=== PATIENT | female | born 1950 | race Caucasian/White ===

== ENCOUNTER 2020-09-10 09:44 | Outpatient (CLI) | payer BC, SELFPAY ==
--- NOTE | 2020-09-10 10:44 | ECG_ITS ---
Measurements Intervals [place] Rate: 73 P: 32 ID: 160 QRS: -11 QRSD: 97 T: 10 QT: 403 QTc: 444 Interpretive Statements SINUS RHYTHM POOR R WAVE PROGRESSION, ANTERIOR LEADS BORDERLINE T WAVE ABNORMALITY- ANT/INF LEADS BASELINE ARTIFACT- I, II, III, AVR, AVL, AVF BORDERLINE ECG Electronically Signed On 09-10-2020 11:12:17 CDT by Sachin Spicer D.O.
[2020-09-10 11:09] LABS: Basophils Absolute Auto 0.1 K/mm3 (0.0-0.1); Basophils Percent Auto 0.5 % (0.2-1.2); Eosinophils Absolute Auto 0.1 K/mm3 (0-0.3); Eosinophils Percent Auto 0.8 % (0-4.4); Hematocrit 46.7 % (37.0-47.0); Hemoglobin 15.3 g/dL (12.0-15.0); Immature Granulocyte Absolute 0.04 K/mm3 (0.00-0.031); Immature Granulocyte Percent A 0.4 % (0-0.5); Lymphocytes Percent Auto 22.6 % (18.3-44.2); Mean Corpuscular HGB Conc 32.8 g/dl (32-36); Mean Corpuscular Hemoglobin 30.3 pg (26-34); Mean Corpuscular Volume 92.5 fl (80-100); Mean Platelet Volume 11.2 fl (7.4-10.4); Monocytes Absolute Auto 0.6 K/mm3 (0.1-0.6); Monocytes Percent Auto 5.6 % (2.6-8.5); Neutrophils Absolute Auto 7.5 K/mm3 (1.3-6.7); Neutrophils Percent Auto 70.1 % (45.5-73.1); Platelet Count Result 266 k/mm3 (150-375); Red Blood Count 5.05 M/mm3 (4.2-5.4); Red Cell Distribution Width 13.2 % (11.5-14.5); White Blood Count 10.6 K/mm3 (4.5-10.0)
[2020-09-10 11:19] LABS: Urine Cotinine NEGATIVE
== END 2020-09-10 09:45 | disposition home or self-care (01) ==
LOC: ANHSURGERY 09:49
PROVIDERS: PCP Family Medicine; Visit Provider Orthopaedic Surgery
DX: M17.12 Unilateral primary osteoarthritis, left knee (principal); Z01.818 Encounter for other preprocedural examination; R94.31 Abnormal electrocardiogram [ECG] [EKG]
CPT/HCPCS: 80307; 85025; 87070; 87077; 87186; 93005

== ENCOUNTER 2020-11-06 09:45 | Outpatient (CLI) | payer BC, SELFPAY ==
[2020-11-06 10:52] LABS: Basophils Absolute Auto 0.1 K/mm3 (0.0-0.1); Basophils Percent Auto 0.9 % (0.2-1.2); Eosinophils Absolute Auto 0.1 K/mm3 (0-0.3); Eosinophils Percent Auto 1.3 % (0-4.4); Hematocrit 45.2 % (37.0-47.0); Hemoglobin 14.7 g/dL (12.0-15.0); Immature Granulocyte Absolute 0.02 K/mm3 (0.00-0.031); Immature Granulocyte Percent A 0.3 % (0-0.5); Lymphocytes Absolute Auto 2.13 K/mm3 (0.9-3.2); Lymphocytes Percent Auto 30.8 % (18.3-44.2); Mean Corpuscular HGB Conc 32.5 g/dl (32-36); Mean Corpuscular Hemoglobin 30.9 pg (26-34); Mean Corpuscular Volume 95.2 fl (80-100); Mean Platelet Volume 11.3 fl (7.4-10.4); Monocytes Absolute Auto 0.5 K/mm3 (0.1-0.6); Monocytes Percent Auto 6.9 % (2.6-8.5); Neutrophils Absolute Auto 4.1 K/mm3 (1.3-6.7); Neutrophils Percent Auto 59.8 % (45.5-73.1); Platelet Count Result 238 k/mm3 (150-375); Red Blood Count 4.75 M/mm3 (4.2-5.4); Red Cell Distribution Width 13.2 % (11.5-14.5); White Blood Count 6.9 K/mm3 (4.5-10.0)
[2020-11-06 11:02] LABS: Albumin Level 4.6 g/dL (3.5-5.1); Anion Gap 8 mmol/L (8-16); Blood Urea Nitrogen 17 mg/dL (7-17); Calcium 9.9 mg/dL (8.4-10.2); Carbon Dioxide 30 mmol/L (22-30); Chloride 102 mmol/L (98-107); Estimated Glomerular Filt Rate > 60; Glucose 150 mg/dL (65-110); Potassium 4.1 mmol/L (3.4-5.0); Sodium 140 mmol/L (137-145)
[2020-11-06 11:07] LABS: Urine Cotinine NEGATIVE
== END 2020-11-06 09:46 | disposition home or self-care (01) ==
LOC: ANHSURGERY 09:50
PROVIDERS: PCP Family Medicine; Visit Provider Orthopaedic Surgery
DX: M17.10 Unilateral primary osteoarthritis, unspecified knee (principal); Z01.818 Encounter for other preprocedural examination
CPT/HCPCS: 80048; 80307; 82040; 85025; 86850; 86900; 86901; 87070

== ENCOUNTER 2020-11-14 01:52 | Day surgery (SDC) | payer BC, SELFPAY ==
[2020-09-10 09:55] VITALS: BMI 36.8
[2020-09-10 10:31] VITALS: BP 149/78; PULSE 78; RESP 16; TEMP 36.5; O2SAT 97
--- NOTE | 2020-09-25 13:06 | WPDANESEPPF ---
Anes - Initial Pre Proc Eval Procedure: Operation Date: 09/26/20 12:00 Proposed Procedures p Left Total Knee Arthroplasty - Braulio Morse MD Date/Time: 09/25/20 13:06 Surgeon: Braulio Morse MD Pre Op Diagnosis: OA left knee Patient Data Age: 70 Gender: F Height: 1.73 m Weight: 109.7 kg Last Vital Signs Temp 36.5 C 09/10/20 10:31 Pulse 78 09/10/20 10:31 Resp 16 09/10/20 10:31 BP 149/78 H 09/10/20 10:31 Pulse Ox 97 09/10/20 10:31 Allergies Allergy/AdvReac Type Severity Reaction Status Date / Time lisinopril Allergy Mild throat Verified 09/10/20 09:56 swelling Home Medications Medication Instructions Recorded Confirmed Type carvedilol 12.5 mg tablet 12.5 mg PO Q12H #180 tablet 01/23/20 09/10/20 Rx cetirizine 10 mg tablet 10 mg PO DAILY PRN #90 tablet 01/23/20 09/10/20 Rx hydrochlorothiazide 12.5 mg capsule 12.5 mg PO DAILY #90 cap 07/16/20 09/10/20 Rx losartan 50 mg tablet 50 mg PO BID #180 tablet 08/20/20 09/10/20 Rx amlodipine 2.5 mg PO QPM 09/10/20 09/10/20 History metformin 500 mg PO BID 09/10/20 09/10/20 History sitagliptin [Januvia] 100 mg PO QPM 09/10/20 09/10/20 History PMFSH Past Medical History Medical History Arthritis of knee Benign labile hypertension Borderline diabetes mellitus Obesity (BMI 30-39.9) Type 2 diabetes mellitus without complications Family History Family History Father Hypertension Family history of elevated blood lipids Family history of diabetes mellitus in first degree relative Mother Family history of malignant neoplasm of uterus Social History Social History (Updated 09/04/20 @ 10:34 by Lexi Rojas) Social History: Years smoked: 20 Smoking status: Former smoker Tobacco type: cigarettes Second hand tobacco smoke exposure: No Smoking end date: 02/09/14 Additional smoking assessment comments: DENIES ANY FORM OF TOBACCO USE Alcohol intake: current Alcohol use details: 1 OR 2 DRINKS PER MONTH Substance use: never Substance use type: does not use Gender identity (if verbalized by the patient): Female Spiritual care concerns: No Anes - Eval Final PreProcedure Day of Procedure 09/25/20 13:06 Patient weight: obese Heart: regular rate and rhythm Lungs: clear to auscultation and normal air movement Airway: Mallampati scale class II Neurological: alert and oriented Last oral intake: >/= 8 hours ASA classification: III Emergent: no Anesthetic plan: proceed Anesthesia type and monitoring: general LMA and ETT Informed Consent: The patient's anesthetic plan and its attendant risks and benefits were discussed with the patient/family/POA. Questions were solicited and answers provided to the satisfaction of the patient/family/POA.
[2020-11-06 10:01] VITALS: BP 168/84; PULSE 80; RESP 20; TEMP 36.3; O2SAT 94; BMI 37.4
--- NOTE | 2020-11-12 12:13 | PM.IMHP ---
H&P: HPI History of Present Illness Date/Time: 11/12/20 12:[age] year old female patient of Dr Burns who presents today for left total knee arthroplasty. She has been having pain in this left knee for several years. She has had 1 cortisone injection in the past which gave her minimal relief. She was prescription strength anti-inflammatories this last year without relief. She has severe medial compartment moderate patellofemoral arthritis in the left knee. She feels this point she is ready to proceed with surgery on the knee rather continue nonsurgical treatment. She is having pain on daily basis. It is keeping her from doing her normal daily activities. <DEN Giron - Last Filed: 11/12/20 12:25> Chief Complaint: left knee DJD <DEN Giron - Last Filed: 11/12/20 12:25> Review of Systems Review of Systems: All systems reviewed & are unremarkable except as noted in HPI and below <DEN Giron - Last Filed: 11/12/20 12:25> [facility] Past Medical History Medical History: Medical History Arthritis of knee Benign labile hypertension Borderline diabetes mellitus Obesity (BMI 30-39.9) Type 2 diabetes mellitus without complications <DEN Giron - Last Filed: 11/12/20 12:25> Family History Family History: Family History Father Hypertension Family history of elevated blood lipids Family history of diabetes mellitus in first degree relative Mother Family history of malignant neoplasm of uterus <DEN Giron - Last Filed: 11/12/20 12:25> Social History Social History: Social History Social History: Years smoked: 20 Smoking status: Former smoker Tobacco type: cigarettes Second hand tobacco smoke exposure: No Smoking end date: 02/09/14 Additional smoking assessment comments: DENIES ANY FORM OF TOBACCO USE Alcohol intake: current Alcohol use details: 1-2 DRINKS/MONTH Substance use: never Substance use type: does not use Living arrangements: with family Gender identity (if verbalized by the patient): Female Sexual Orientation (if Verbalized by the Patient): Straight or Heterosexual Spiritual care concerns: No <DEN Giron - Last Filed: 11/12/20 12:25> Meds Home Medications and Allergies Home medications: Home Medications Medication Instructions Recorded Confirmed Type carvedilol 12.5 mg tablet 12.5 mg PO Q12H #180 tablet 01/23/20 11/14/20 Rx cetirizine 10 mg tablet 10 mg PO DAILY PRN #90 tablet 01/23/20 11/14/20 Rx hydrochlorothiazide 12.5 mg capsule 12.5 mg PO DAILY #90 cap 07/16/20 11/14/20 Rx losartan 50 mg tablet 50 mg PO BID #180 tablet 08/20/20 11/14/20 Rx metformin 500 mg PO BID 09/10/20 11/14/20 History amlodipine 2.5 mg HS 11/06/20 11/14/20 History sitagliptin [Januvia] 100 mg HS 11/06/20 11/14/20 History <DEN Giron - Last Filed: 11/12/20 12:25> Allergies/Adverse reactions: Allergies Allergy/AdvReac Type Severity Reaction Status Date / Time lisinopril Allergy Mild throat Verified 11/14/20 06:38 swelling <DEN Giron - Last Filed: 11/12/20 12:25> Exam Narrative: 70-year-old female alert pleasant. . She is 5 ft 7 244 lb. His left knee range of motion is from 10-125 degrees. No effusion. Normal stability. Skin is all normal. 2+ posterior tibial artery pulse and absent dorsalis pedis pulse. Normal sensation left lower extremity. Hip range of motion is full without discomfort. Negative Stinchfield maneuver. Normal quad strength. Moderate medial joint line tenderness and significant patellofemoral crepitus with range of motion. She has moderate tenderness to patellofemoral grind. <DEN Giron - Last Filed: 11/12/20 12:25> Resp: Auscultation: clear to auscultation bilaterally <Bobby Cifuentes
--- NOTE | 2020-11-13 13:54 | WPDANESEPPF ---
Anes - Initial Pre Proc Eval Procedure: Operation Date: 11/14/20 07:30 Proposed Procedures p Left Total Knee Arthroplasty - Braulio Morse MD Date/Time: 11/13/20 13:54 Surgeon: Braulio Morse MD Pre Op Diagnosis: OA left knee Patient Data Age: 70 Gender: F Height: 1.73 m Weight: 111.6 kg Last Vital Signs Temp 97.3 F L 11/06/20 10:01 Pulse 80 11/06/20 10:01 Resp 20 11/06/20 10:01 BP 168/84 H 11/06/20 10:01 Pulse Ox 94 11/06/20 10:01 Allergies Allergy/AdvReac Type Severity Reaction Status Date / Time lisinopril Allergy Mild throat Verified 11/14/20 06:38 swelling Home Medications Medication Instructions Recorded Confirmed Type carvedilol 12.5 mg tablet 12.5 mg PO Q12H #180 tablet 01/23/20 11/14/20 Rx cetirizine 10 mg tablet 10 mg PO DAILY PRN #90 tablet 01/23/20 11/14/20 Rx hydrochlorothiazide 12.5 mg capsule 12.5 mg PO DAILY #90 cap 07/16/20 11/14/20 Rx losartan 50 mg tablet 50 mg PO BID #180 tablet 08/20/20 11/14/20 Rx metformin 500 mg PO BID 09/10/20 11/14/20 History amlodipine 2.5 mg HS 11/06/20 11/14/20 History sitagliptin [Januvia] 100 mg HS 11/06/20 11/14/20 History Patient hx anesthesia problems: none Family hx anesthesia problems: none Results Review: All pre-operative results and documents have been reviewed as part of the pre-operative evaluation. [facility] Past Medical History Medical History Arthritis of knee Benign labile hypertension Borderline diabetes mellitus Obesity (BMI 30-39.9) Type 2 diabetes mellitus without complications Family History Family History Father Hypertension Family history of elevated blood lipids Family history of diabetes mellitus in first degree relative Mother Family history of malignant neoplasm of uterus Social History Social History Social History: Years smoked: 20 Smoking status: Former smoker Tobacco type: cigarettes Second hand tobacco smoke exposure: No Smoking end date: 02/09/14 Additional smoking assessment comments: DENIES ANY FORM OF TOBACCO USE Alcohol intake: current Alcohol use details: 1-2 DRINKS/MONTH Substance use: never Substance use type: does not use Living arrangements: with family Gender identity (if verbalized by the patient): Female Sexual Orientation (if Verbalized by the Patient): Straight or Heterosexual Spiritual care concerns: No Anes - Eval Final PreProcedure Day of Procedure 11/13/20 13:54 Patient weight: obese Heart: regular rate and rhythm Lungs: clear to auscultation Airway: Mallampati scale class II Neurological: alert and oriented Last oral intake: >/= 8 hours ASA classification: III Emergent: no Anesthetic plan: proceed Anesthesia type and monitoring: general LMA and standard monitoring Results Review: All pre-operative results and documents have been reviewed as part of the pre-operative evaluation. Informed Consent: The patient's anesthetic plan and its attendant risks and benefits were discussed with the patient/family/POA. Questions were solicited and answers provided to the satisfaction of the patient/family/POA.
[2020-11-14] VITALS (16 sets, daily range): BP systolic 93–147; BP diastolic 53–78; PULSE 73–97; RESP 12–20; TEMP 36–37.1; O2SAT 92–100
--- NOTE | ~2020-11-14 | XR_ITS ---
EXAMINATION: XR knee LT 2V DATE: 11/14/2020 11:50 INDICATION: Total left knee arthroplasty. Postop. TECHNIQUE: 2 views of left knee were obtained. COMPARISON: Left knee radiograph 09/25/2016 FINDINGS: There is a total left knee arthroplasty with patellar resurfacing in near-anatomic alignmen t. No fracture. There is gas in the soft tissues, consistent with recent surgery. There is a small kn ee joint effusion. IMPRESSION: 1. Total left knee arthroplasty in near-anatomic alignment. Reviewed, dictated and finalized at location A.
[2020-11-14] MEDS: ACETAMINOPHEN 500 MG TABLET 1000 MG PO ×3 (06:20→20:22)
[2020-11-14] MEDS: LACTATED RINGERS 1,000 ML 30 ML IV CONT ×2 (06:25→11:42)
[2020-11-14] MEDS: TRANEXAMIC ACID 1,000MG/ISO100 1,000 MG/100 ML BAG 200 MG IVPB (06:31)
[2020-11-14 06:35] LABS: Glucose Point of Care 156 mg/dl (65-105)
--- NOTE | 2020-11-14 07:07 | WPDHPUPDATE1 ---
History and Physical Update Update Date/Time: 11/14/20 07:07 History and Physical has been reviewed, including an updated exam of the patient. There are NO changes in the patient's condition. Risks, benefits, and alternatives have been discussed and questions answered. Patient agrees to proceed with procedure.
[2020-11-14] MEDS: ceFAZolin 2 GM/D5W 50 ML 2 GM/50 ML BAG IVPB (07:30)
[2020-11-14] MEDS: ceFAZolin SODIUM 1 GM VIAL 3 GM IRRIGATION (08:00)
[2020-11-14] MEDS: GENTAMICIN BONE CEMENT REFOBACIN 1 EACH TOPICAL (09:52)
[2020-11-14] MEDS: ceFAZolin SODIUM 1 GM VIAL 2 GM IV PUSH (10:47)
[2020-11-14] MEDS: TRANEXAMIC ACID 1,000 MG/10 ML AMPUL 1000 MG IV PUSH (10:52)
--- NOTE | 2020-11-14 11:53 | W.PM.PROC2 ---
Procedure Note - Detailed Date of Procedure 11/14/20 Pre-op Diagnosis OA left knee Post-op Diagnosis same Procedure Performed Left total knee arthroplasty Surgeon Braulio Morse MD Link Trainer Operator Oscar Anesthesia general Findings Same Description of Procedure Patient was brought to the operating room and general anesthesia was administered. The left knee was prepped draped usual fashion. She received 2 g Ancef weight based vancomycin and 1 g of tranexamic acid preoperatively. She did have about a 7 degree flexion contracture under anesthesia. Limb was exsanguinated tourniquet elevated to 300 mmHg. An 8 in longitudinal midline incision was used. Standard parapatellar arthrotomy was utilized. Infrapatellar and suprapatellar fat pads were excised a quadriceps synovectomy carried out. The patella had significant degenerative changes and measured 23 mm in thickness. It was cut to 15 mm and a protector cap applied. Bone quality was very good. A guide ailyn was inserted on the femoral canal after aspiration of canal contents using the 5 degree valgus cutting bushing 9 mm of bone removed off the distal femur. This removed the same amount medially and laterally. Next the 2 plateau was cut removing 2 mm of bone off the low point of medial tibial plateau she moved about 6 from lateral side. Meniscal remnants were excised PCL recessed. Margins of the medial tibial osteophyte were removed. Flexion gap was 8 mm all medially and 10 mm laterally. We applied the sizing guide the distal femur set at 3? of external rotation which matched Whitesides signs lined nicely. This 65 was going to notch we cut to a 67.5 which was going to be a little bit too wide. We trialed with the 10 CR insert which was easy to insert in flexion but no play laterally about a mm half plane medially. The tibial alignment was confirmed to be perpendicular to the axis of the tibia and the tibia was sized to a 71 which fit line to line posterolateral and anteromedial at the proper rotation and this was punched. We trialed the 10 and that he lacked about fiber 6? of extension with no medial or lateral play. At 90? of flexion again there was some play medially but it was too tight laterally. An additional 2 mm of bone removed the distal femur chamfer cuts revisited and on read trialing the knee came out to full extension with 1 mm lateral plate and a mm medial play in full extension with a negative bounce. At 90? though was still too tight laterally with no anterior posterior drawer play whatsoever and I felt this was a little bit too tight. We needed to downsize the femoral component since it was a little bit too wide. We removed the lateral fixation pin from the 06/09 cutting block the size 65 and internally rotated it such that we would remove about a mm and half of bone from the posterior aspect the lateral femoral condyle diminishing the tendency for this to notch and this was pinned in place in this position and AP and chamfer cuts revisited in the 65 femur fit nicely line to line medial to lateral and no notching anteriorly. We trialed in this time with a size 10 there is a mm of lateral opening with varus stress at 90? and a mm of medial opening with valgus stress at 90? to had very appropriate flexion stability gravity flexion to 130 with patellar tracking somewhat poor. The tourniquet had been released at 96 minutes in we punched the heriberto sized the patella to a 31 x 8 mm and this was punched and lug holes were drilled in the femur. Lateral retinacular release was necessary for the patella to track centrally and this was done to a level just distal to the superior pole of patella avoiding the superior lateral geniculate vessels and carried down distally to the tibial plateau. This allowed central patellar tracking. Limb was exsanguinated again and tourniquet elevated 300 mmHg. Step drill was used to make multiple perforations the tibial plateau and distal femur. Bone quality was very go
[2020-11-14 12:08] LABS: Glucose Point of Care 189 mg/dl (65-105)
--- NOTE | 2020-11-14 14:43 | ADMGEN ---
This patient, Jud Dalal, was admitted to 2 Medical Room 241-01. Patient/family oriented to hospital policies and general routines including ID bracelet, bed and alarms, visiting hours, pain management, procedures, bathroom and other care routines, personal items, smoking policy, room service/diet, and visiting hours. Information on how to activate the Rapid Response Team has been discussed. Patient/Family are encouraged to report perceived risks to care and to ask questions if they do not understand what they are told or what they should do.
[2020-11-14] MEDS: SENNA/DOCUSATE SODIUM TABLET 2 TAB PO (16:43)
[2020-11-14] MEDS: oxyCODONE HCL (*CRX) 5 MG TAB IR PO ×3 (16:43→23:45)
[2020-11-14] MEDS: metFORMIN HCL XR 500 MG TAB.SR.24H PO (16:44)
[2020-11-14] MEDS: DOCUSATE SODIUM 100 MG CAPSULE PO (16:44)
--- NOTE | 2020-11-14 17:30 | WPDCN ---
Assessment and Plan Assessment and plan (1) Arthritis of left knee: Code(s): M17.12 - Unilateral primary osteoarthritis, left knee Status: Acute Assessment and Plan: Postoperative day 0, status post right total knee arthroplasty. Wound care and pain control will be deferred to Dr. Morse as well as DVT prophylaxis. PT/OT consulted. Initiate fall precautions. Check baseline labs in a.m. (2) Hypertension: Code(s): I10 - Essential (primary) hypertension Status: Acute Assessment and Plan: Blood pressures were reviewed and they have been stable postoperatively though they were a bit soft in PACU earlier today. Will resume antihypertensives with parameters and monitor blood pressures daily. (3) Type 2 diabetes mellitus without complications: Code(s): E11.9 - Type 2 diabetes mellitus without complications Status: Acute Assessment and Plan: Resume metformin and sitagliptin. Initiate sliding scale insulin, Accu-Cheks, and hypoglycemic protocol. Additional Plan Thank you for allowing us to participate in this patient's care. Please do not hesitate to contact us with any questions. Supervising physician for this medical consultation is Dr. Ran Moore. HPI Data of Consult Date/Time: 11/14/20 17:30 Requesting Physician: Braulio Morse MD Primary Care Provider: Katy Chavez MD Consult Narrative Narrative: This is a 70-year-old female with hypertension, type 2 diabetes mellitus, and degenerative joint disease whom the hospitalist service has been consulted for management of her medical conditions postoperatively. She has had pain in her left knee for several years and unfortunately conservative outpatient therapies have not provided her with long-lasting benefits and as such she elected for replacement today. Her surgery was performed under general anesthesia with no immediate complications documented an estimated blood loss of 250 mL. At the time my evaluation she is sitting in a chair at the side of the bed and is just finished eating dinner. She has been up with physical therapy and to the bathroom with a walker and is doing quite well. She is only having mild discomfort in the posterior knee. Postoperatively she was a bit ?woozy? but that has passed and she is feeling pretty good. She denies postoperative fever, chills, sweats, chest pain, shortness of breath, nausea, and vomiting. She also denies paresthesias, skin color, and temperature changes distal to the surgical site. Review of Systems Review of Systems: Twelve systems were reviewed with pertinent positives and negatives as per HPI. No recent cold or flu symptoms. She denies sick contacts. No known exposure to those positive for COVID 19. Her diabetes is well controlled in fact she has dropped her hemoglobin A1c by nearly 5% in the last 5 months being more mindful of her diet and with weight loss, in addition to medication. No personal or family history venous thromboembolism. Except as documented, all other systems were reviewed and are negative. [facility] Past Medical History Medical History (Updated 11/14/20 @ 15:24 by Jenny Hartmann PA-C) Arthritis of left knee Hypertension Type 2 diabetes mellitus without complications Hemoglobin A1c was 5.9% on 08/31/2020. Surgical History Surgical History (Updated 11/14/20 @ 15:24 by Jenny Hartmann PA-C) History of arthroplasty of left knee History of hysterectomy (11/14/20) Family History Family History Father Hypertension Family history of elevated blood lipids Family history of diabetes mellitus in first degree relative Mother Family history of malignant neoplasm of uterus Social History Social History (Updated 11/14/20 @ 15:26 by Jenny Hartmann PA-C) Social History: . [place]
[2020-11-14] MEDS: carvediloL 12.5 MG TABLET PO (20:23)
[2020-11-14] MEDS: amLODIPine BESYLATE 2.5 MG TABLET PO (20:24)
[2020-11-14] MEDS: APIXABAN 2.5 MG TABLET PO (20:25)
[2020-11-14 22:16] LABS: Glucose Point of Care 210 mg/dl (65-105)
[2020-11-15] MEDS: ACETAMINOPHEN 500 MG TABLET 1000 MG PO ×3 (02:43→13:23)
[2020-11-15 03:15] VITALS: BP 128/64; PULSE 87; RESP 18; TEMP 36.4; O2SAT 97
[2020-11-15] MEDS: oxyCODONE HCL (*CRX) 5 MG TAB IR PO ×5 (04:50→13:24)
[2020-11-15] MEDS: CEPHALEXIN 250 MG CAPSULE PO ×2 (04:51→11:54)
[2020-11-15 05:38] LABS: Basophils Percent Auto 0.3 % (0.2-1.2); Eosinophils Percent Auto 0.2 % (0-4.4); Hematocrit 36.9 % (37.0-47.0); Hemoglobin 12.1 g/dL (12.0-15.0); Immature Granulocyte Absolute 0.06 K/mm3 (0.00-0.031); Immature Granulocyte Percent A 0.5 % (0-0.5); Lymphocytes Absolute Auto 1.84 K/mm3 (0.9-3.2); Lymphocytes Percent Auto 14.2 % (18.3-44.2); Mean Corpuscular HGB Conc 32.8 g/dl (32-36); Mean Corpuscular Hemoglobin 30.4 pg (26-34); Mean Corpuscular Volume 92.7 fl (80-100); Mean Platelet Volume 11.5 fl (7.4-10.4); Monocytes Absolute Auto 1.1 K/mm3 (0.1-0.6); Monocytes Percent Auto 8.3 % (2.6-8.5); Neutrophils Percent Auto 76.5 % (45.5-73.1); Platelet Count Result 225 k/mm3 (150-375); Red Blood Count 3.98 M/mm3 (4.2-5.4); Red Cell Distribution Width 13.2 % (11.5-14.5)
[2020-11-15 05:52] LABS: Anion Gap 10 mmol/L (8-16); Blood Urea Nitrogen 12 mg/dL (7-17); Calcium 9.1 mg/dL (8.4-10.2); Carbon Dioxide 27 mmol/L (22-30); Chloride 100 mmol/L (98-107); Estimated CRCL calculation 84 ml/min; Estimated Glomerular Filt Rate > 60; Glucose 147 mg/dL (65-110); Magnesium 1.8 mg/dL (1.6-2.3); Potassium 3.9 mmol/L (3.4-5.0); Sodium 137 mmol/L (137-145)
[2020-11-15 07:15] VITALS: BP 128/69; PULSE 85; RESP 18; TEMP 36.8; O2SAT 97
--- NOTE | 2020-11-15 07:16 | PM.PNORT ---
Progress Note: A&P Additional Plan Postop day 1 patient is doing very well. She is afebrile vital signs are stable. Neurovascular intact. Dressing is dry. She was up to the restroom overnight and tolerating this. She is having a little bit increased pain with weight-bearing, I discussed with her about making sure that she is taking 2 pain pills at a time to help control this. Labs were noted from this morning she is stable. Will plan to have patient work with physical therapy for both sessions today and then plan to send home later this afternoon patient continues to do well. Subjective Subjective Date/Time Seen: 11/15/20 07:16 Objective Data Vital Signs Vital Signs: Vital Signs - 24 hr 11/14/20 11:42 11/14/20 11:55 11/14/20 12:10 Temperature 36.8 C Pulse Rate 81 83 86 Respiratory Rate 14 12 14 Blood Pressure 93/53 L 94/55 L 126/72 Pulse Oximetry 93 95 96 11/14/20 12:25 11/14/20 12:40 11/14/20 12:55 Temperature Pulse Rate 88 77 80 Respiratory Rate 14 14 12 Blood Pressure 122/70 125/68 127/71 Pulse Oximetry 93 94 97 11/14/20 13:09 11/14/20 13:30 11/14/20 13:45 Temperature 36.3 C L 36.1 C L 36.0 C L Pulse Rate 80 76 73 Respiratory Rate 12 14 14 Blood Pressure 131/68 132/66 131/69 Pulse Oximetry 97 98 98 11/14/20 14:15 11/14/20 15:08 11/14/20 15:15 Temperature 36.0 C L 36.1 C L Pulse Rate 79 87 Respiratory Rate 14 14 Blood Pressure 133/68 130/68 Pulse Oximetry 99 92 100 11/14/20 19:15 11/14/20 20:23 11/14/20 23:15 Temperature 36.1 C L 37.1 C Pulse Rate 97 85 88 Respiratory Rate 20 20 Blood Pressure 137/70 136/66 Pulse Oximetry 99 98 11/15/20 03:15 Temperature 36.4 C Pulse Rate 87 Respiratory Rate 18 Blood Pressure 128/64 Pulse Oximetry 97 Intake/Output Intake/Output: Intake & Output 11/12/20 11/13/20 11/14/20 11/15/20 23:59 23:59 23:59 23:59 Intake Total 690 900 Output Total 1400 Balance 690 -500 Meds/Results Medications: Active Medications Generic Name Dose Route Start Last Admin Trade Name Christiano PRN Reason Stop Dose Admin Acetaminophen 1,000 mg 11/14/20 14:00 11/15/20 02:43 Acetaminophen 500 Mg Tablet PO 1,000 mg Q6H EDGAR Administration Amlodipine Besylate 2.5 mg 11/14/20 21:00 11/14/20 20:24 Amlodipine Besylate 2.5 Mg Tablet PO 2.5 mg HS EDGAR Administration Apixaban 2.5 mg 11/14/20 21:00 11/14/20 20:25 Apixaban 2.5 Mg Tablet PO 2.5 mg Q12HR EDGAR Administration Carvedilol 12.5 mg 11/14/20 21:00 11/14/20 20:23 Carvedilol 12.5 Mg Tablet PO 12.5 mg Q12HR EDGAR Administration Celecoxib 200 mg 11/15/20 08:00 Celecoxib 200 Mg Capsule PO DAILY@0800 EDGAR Cephalexin HCl 250 mg 11/15/20 06:00 11/15/20 04:51 Cephalexin 250 Mg Capsule PO 11/29/20 05:59 250 mg Q6HR EDGAR Administration Dextrose 12.5 gm 11/14/20 13:10 Dextrose 50% 25 Gm/50 Ml Syringe IV PUSH PRN PRN Hypoglycemia Protocol Docusate Sodium 100 mg 11/14/20 17:00 11/14/20 16:44 Docusate Sodium 100 Mg Capsule PO 100 mg BID EDGAR Administration Glucagon 1 mg 11/14/20 13:10 Glucagon For Inj 1 Mg Vial IM PRN PRN Hypoglycemia Protocol Glucose 15 gm 11/14/20 13:10 Glucose Oral Gel 15 Gm Of Glucse In 37.5 Gm Tube PO PRN PRN Hypoglycemia Protocol Dextrose 1,000 mls @ 100 mls/hr 11/14/20 13:10 Dextrose 5% 1,000 Ml IVPB PRN PRN Hypoglycemia Protocol Vancomycin HCl 1,000 mg in 250 mls @ 250 mls/hr 11/14/20 19:00 11/15/20 06:09 Vancomycin 1,000 Mg/D5w 250 Ml IVPB 11/15/20 07:59 250 mls/hr Q12H EDGAR Administration Cefazolin Sodium 1 gm in 50 mls @ 100 mls/hr 11/14/20 15:30 11/15/20 00:16 Ancef 1 Gm/D5w 50 Ml Pm IVPB 11/15/20 07:59 Infused Q8H [facility] Infusion Insulin Aspart 2 - 5 units 11/14/20 17:00 11/14/20 16:44 Insulin Aspart (*Bkc) 100 Units/Ml SUB-Q Not Given TIDWM [facility] Protocol Loratadine 10 mg 11/14/20
--- NOTE | 2020-11-15 07:41 | PM.DS ---
DS: Admitting Diagnosis Discharge Date 11-15-2020 Admitting Diagnosis left knee DJD DS: Summary Hospital Course Hospital Course: stable Time Spent with Patient Time attestation: Total time spent providing and/or coordinating discharge services: 70-year-old female underwent left total knee arthroplasty on 11/14. Under procedure and complications. Postoperative she has been afebrile vital signs was stable. Neurovascular is intact. She has a Mepilex dressing over the knee. She is weight-bearing as tolerated. She is on Eliquis for 2 weeks followed by baby aspirin for DVT prophylaxis. Pain control, where utilizing oxycodone 5 mg, Celebrex 200 mg once a day as well as scheduled Tylenol. Patient will be discharged to home on 11/15. She has outpatient therapy starting tomorrow. Patient was advised questions or concerns call the office otherwise I will see her appointment dates. DS: Data Data Completed and Pending Labs on day of discharge: Labs from last 24 hours 11/15/20 11/15/20 11/14/20 04:54 04:54 22:11 WBC 13.0 H RBC 3.98 L Hgb 12.1 Hct 36.9 L MCV 92.7 MCH 30.4 MCHC 32.8 RDW 13.2 Plt Count 225 MPV 11.5 H Immature Gran % (Auto) 0.5 Neut % (Auto) 76.5 H Lymph % (Auto) 14.2 L [place] % (Auto) 8.3 Eos % (Auto) 0.2 Baso % (Auto) 0.3 Lymph # (Auto) 1.84 [place] # (Auto) 1.1 H Eos # (Auto) 0.0 Baso # (Auto) 0.0 Abs Immat Gran (auto) 0.06 H Absolute Neuts (auto) 10.0 H Absolute Nucleated RBC 0.0 Nucleated RBC % 0.0 Sodium 137 Potassium 3.9 Chloride 100 Carbon Dioxide 27 Anion Gap 10 BUN 12 D Creatinine 0.70 Estim Creat Clear Calc 84 Estimated GFR > 60 Glucose 147 H POC Capillary Glucose 210 H Calcium 9.1 Magnesium 1.8 11/14/20 11:49 WBC RBC Hgb Hct MCV MCH MCHC RDW Plt Count MPV Immature Gran % (Auto) Neut % (Auto) Lymph % (Auto) [place] % (Auto) Eos % (Auto) Baso % (Auto) Lymph # (Auto) [place] # (Auto) Eos # (Auto) Baso # (Auto) Abs Immat Gran (auto) Absolute Neuts (auto) Absolute Nucleated RBC Nucleated RBC % Sodium Potassium Chloride Carbon Dioxide Anion Gap BUN Creatinine Estim Creat Clear Calc Estimated GFR Glucose POC Capillary Glucose 189 H Calcium Magnesium Discharge Plan Discharge Patient Disposition: Home, Self-Care Discharge Instructions: BRAULIO MORSE M.D [facility], [place] [id number] [place] [address] POST-OPERATIVE DISCHARGE INSTRUCTIONS TOTAL KNEE ARTHROPLASTY 1. When resting, lie on back with leg elevated above hear to minimize swelling. Significant swelling could indicate a blood clot and if this occurs call the office (or go to the ER) to have a venous ultrasound. 2. Do exercise 5 times a day. 3. Do not sit with leg down except for meals. 4. Wound Care: Nursing will give additional dressings at discharge. Patient to change dressing at home 1 week from surgery, then maintain until seen in office. 5. May shower with dressing in place. 6. Follow weight bearing status instructions. 7. Limit sitting in chair with leg hanging down to 30 minutes at a time, 4 times a day. Patient Instructions: Apixaban (By mouth), Pain Management (DC), Precautions after Total Joint Replacement Surgery (DC), Knee Replacement (DC) Stand Alone Forms: General Discharge Instructions Follow-up/Referrals: Braulio Morse MD [Physician] - Keep Reg. Scheduled Appt. Discharge Medications: New acetaminophen 500 mg Tablet 1,000 mg PO Q6H Qty: 90 RF: 0 Eliquis 2.5 mg Tablet 2.5 mg PO Q12HR Qty: 27 RF: 0 celecoxib [Celebrex] 200 mg Capsule 200 mg PO DAILY@0800 Qty: 30 RF: 0 polyethylene glycol 3350 [Miralax] 17 gram Powder In Packet 17 g PO QAM Qty: 30 RF: 0 cephalexin 250 mg Capsule 500 mg PO Q6HR Qty: 48 RF: 0 sennosides-docusate so
[2020-11-15 07:45] LABS: Glucose Point of Care 181 mg/dl (65-105)
[2020-11-15] MEDS: CELECOXIB 200 MG CAPSULE PO (08:50)
[2020-11-15] MEDS: SENNA/DOCUSATE SODIUM TABLET 2 TAB PO (08:50)
[2020-11-15] MEDS: APIXABAN 2.5 MG TABLET PO (08:50)
[2020-11-15] MEDS: DOCUSATE SODIUM 100 MG CAPSULE PO (08:50)
[2020-11-15 08:51] VITALS: PULSE 84; RESP 18; O2SAT 98
[2020-11-15] MEDS: carvediloL 12.5 MG TABLET PO (08:51)
[2020-11-15] MEDS: metFORMIN HCL XR 500 MG TAB.SR.24H PO (08:51)
[2020-11-15] MEDS: LOSARTAN POTASSIUM 50 MG TABLET PO (08:52)
--- NOTE | 2020-11-15 09:42 | P.PNAN_ITS ---
Anes - Prog Note Post-Op Date/Time: 11/15/20 09:42 Cardiovascular status: normal Respiratory status: normal Airway patency: baseline Mental status: baseline Post-Op hydration status: normal Vital Signs: Last Vital Signs Temp 36.8 C 11/15/20 07:15 Pulse 84 11/15/20 08:51 Resp 18 11/15/20 07:15 BP 128/69 11/15/20 07:15 Pulse Ox 97 11/15/20 07:15 Pain Score (VAS): 0 I/O: Intake & Output 11/14/20 11/15/20 11/15/20 23:59 07:59 15:59 Intake Total 540 1200 480 Output Total 1400 Balance 540 -200 480 Laboratory Tests 11/15/20 04:54 11/15/20 04:54 11/14/20 11/14/20 11/15/20 11:49 22:11 04:54 WBC 13.0 H RBC 3.98 L Hgb 12.1 Hct 36.9 L MCV 92.7 MCH 30.4 MCHC 32.8 RDW 13.2 Plt Count 225 MPV 11.5 H Immature Gran % (Auto) 0.5 Neut % (Auto) 76.5 H Lymph % (Auto) 14.2 L [place] % (Auto) 8.3 Eos % (Auto) 0.2 Baso % (Auto) 0.3 Lymph # (Auto) 1.84 [place] # (Auto) 1.1 H Eos # (Auto) 0.0 Baso # (Auto) 0.0 Abs Immat Gran (auto) 0.06 H Absolute Neuts (auto) 10.0 H Absolute Nucleated RBC 0.0 Nucleated RBC % 0.0 Sodium Potassium Chloride Carbon Dioxide Anion Gap BUN Creatinine Estim Creat Clear Calc Estimated GFR Glucose POC Capillary Glucose 189 H 210 H Calcium Magnesium 11/15/20 11/15/20 04:54 07:36 WBC RBC Hgb Hct MCV MCH MCHC RDW Plt Count MPV Immature Gran % (Auto) Neut % (Auto) Lymph % (Auto) [place] % (Auto) Eos % (Auto) Baso % (Auto) Lymph # (Auto) [place] # (Auto) Eos # (Auto) Baso # (Auto) Abs Immat Gran (auto) Absolute Neuts (auto) Absolute Nucleated RBC Nucleated RBC % Sodium 137 Potassium 3.9 Chloride 100 Carbon Dioxide 27 Anion Gap 10 BUN 12 D Creatinine 0.70 Estim Creat Clear Calc 84 Estimated GFR > 60 Glucose 147 H POC Capillary Glucose 181 H Calcium 9.1 Magnesium 1.8 Post-procedural complaints: none Patient Feedback: Patient satisfied with anesthetic care.
--- NOTE | 2020-11-15 10:24 | PM.IMPN ---
Progress Note: A&P Assessment and Plan (1) Arthritis of left knee: Code(s): M17.12 - Unilateral primary osteoarthritis, left knee Status: Acute Assessment and Plan: Postoperative day 1, status post left total knee arthroplasty performed by Dr. Morse. Management per Orthopedic Surgery. Continue PT/OT. planning for discharge home today with outpatient PT / OT and orthopedic follow-up arranged. (2) Hypertension: Code(s): I10 - Essential (primary) hypertension Status: Acute Assessment and Plan: Blood pressures were reviewed and were a bit soft in the PACU in the immediate postoperative period but have remained stable following. Last BP 128/69. Continue home antihypertensive regimen. (3) Type 2 diabetes mellitus without complications: Code(s): E11.9 - Type 2 diabetes mellitus without complications Status: Acute Assessment and Plan: Last A1c August 2020 was 5.9. Continue with Accu-Cheks, sliding scale insulin, hypoglycemic protocol during admission. Continue home metformin and sitagliptin. Additional Plan Patient is being discharged home today. Will sign off. Feel free to contact for any further questions. Thank you for allowing us to participate in care for this patient. Subjective Date/time seen: 11/15/20 10:24 Interval history: Date of service: 11/15/2020 Jud Dalal is a 70-year-old female with a history of hypertension and type 2 diabetes mellitus who is now s/p left total knee arthroplasty who is being seen in in consultation for medical management. She is feeling well today. She reports 4/10 left knee pain at this time. This morning she rated as 7/10 when she was up and walking with therapy. She has been using her walker. Planning for discharge home today where she lives with her . She reports she has approximately 4 stairs prior to entering her home. She has outpatient physical therapy arranged. She denies shortness breath, chest pain, nausea, vomiting, fever, or chills. She denies urinary symptoms. She has not had a bowel movement postoperatively but has been passing gas. Review of Systems Review of Systems: All systems reviewed & are unremarkable except as noted in HPI and below Exam Narrative: Ms. Dalal is A well-nourished, well-appearing 70-year-old female who is sitting in a chair by the bedside. she appears comfortable and is in NARD. Neuro: awake, alert and oriented x4, speech clear, no focal neuro deficits noted HEENMT: normocephalic, atraumatic, EOMI, sclerae anicteric, moist oral mucosa Neck: supple, no lymphadenopathy Respiratory: clear to auscultation bilaterally, nonlabored breathing Cardio: regular rate, regular rhythm with S1-S2 Abdomen: nondistended, normoactive bowel sounds, soft, nontender to palpation Extremities: left knee covered with bandage that is clean and dry. Slightly tender to palpation with anterior knee. Bilateral lower extremities with no edema, erythema, or tenderness to palpation, DP pulses 2+ bilaterally. neurovascularly intact. Able to wiggle toes bilaterally. Brisk capillary refill. Skin: no rashes or lesions, warm and dry Psych: appropriate mood and affect, judgment and insight intact Objective Data Vital Signs Vital Signs: Vital Signs - 24 hr 11/14/20 11:42 11/14/20 11:55 11/14/20 12:10 Temperature 98.3 F Pulse Rate 81 83 86 Respiratory Rate 14 12 14 Blood Pressure 93/53 L 94/55 L 126/72 Pulse Oximetry 93 95 96 11/14/20 12:25 11/14/20 12:40 11/14/20 12:55 Temperature Pulse Rate 88 77 80 Respiratory Rate 14 14 12 Blood Pressure 122/70 125/68 127/71 Pulse Oximetry 93 94 97 11/14/20 13:09 11/14/20 13:30 11/14/20 13:45 Temperature 97.4 F L 96.9 F L 96.8 F L Pulse Rate 80 76 73 Respiratory Rate 12 14 14 Blood Pressure 131/68 132/66 131/69 Pulse Oximetry 97 98 98 11/14/20 14:15 11/14/20 15:08 11/14/20 15:15 Temperature 96.8 F L 96.9 F L Pulse Rate 7
[2020-11-15 11:15] VITALS: BP 128/65; PULSE 82; RESP 18; TEMP 36.8; O2SAT 98
[2020-11-15 11:30] LABS: Glucose Point of Care 197 mg/dl (65-105)
== END 2020-11-15 14:15 | disposition home or self-care (01) ==
LOC: ANHSURGERY 06:02 → ANH2MED 13:32
PROVIDERS: PCP Family Medicine; Visit Provider Orthopaedic Surgery
PROC: (CPT 27447; principal; 2020-11-14 07:30)
DX: M17.12 Unilateral primary osteoarthritis, left knee (principal); I10 Essential (primary) hypertension; E11.9 Type 2 diabetes mellitus without complications; Z79.84 Long term (current) use of oral hypoglycemic drugs; Z87.891 Personal history of nicotine dependence; E66.9 Obesity, unspecified; Z68.37 Body mass index [BMI] 37.0-37.9, adult
CPT/HCPCS: 27447; 36415; 73560; 80048; 82948; 83735; 85025; 97110; 97116; 97162; 97165; 97535; A9270; C1713; C1776; J0171; J0690; J1100; J1170; J2250; J2270; J2370; J2405; J2704; J2795; J3010; J3370; J7120